=== PATIENT | female | born 1970 | race African-American/Black ===

== ENCOUNTER 2017-01-23 05:29 | Day surgery (SDC) | payer BC ==
[2017-01-21 11:17] LABS: APPEARANCE,URINE CLEAR; BILIRUBIN,URINE NEGATIVE (NEGATIVE); GLUCOSE, URINE NEGATIVE (NEGATIVE); KETONES,URINE NEGATIVE (NEGATIVE); LEUKOCYTE ESTERASE,URINE NEGATIVE (NEGATIVE); NITRITE,URINE NEGATIVE (NEGATIVE); PROTEIN,URINE NEGATIVE (NEGATIVE); URINE SPECIFIC GRAVITY 1.002; UROBILINOGEN,URINE NEGATIVE mg/dL (<2.0)
--- NOTE | 2017-01-21 12:14 | RADIOLOGY REPORT (SQ) ---
EXAM DESCRIPTION: CHEST PA/LATERAL COMPLETED DATE/TIME: 01/21/2017 12:05 pm REASON FOR STUDY: PRE OP COMPARISON: None. EXAM PARAMETERS: NUMBER OF VIEWS: two views TECHNIQUE: Digital Frontal and Lateral radiographic views of the chest acquired. RADIATION DOSE: NA LIMITATIONS: none FINDINGS: LUNGS AND PLEURA: No opacities, masses or pneumothorax. No pleural effusion. MEDIASTINUM AND HILAR STRUCTURES: No masses or contour abnormalities. HEART AND VASCULAR STRUCTURES: Heart normal size. No evidence for failure. BONES: No acute findings. HARDWARE: None in the chest. OTHER: No other significant finding. IMPRESSION: NO SIGNIFICANT RADIOGRAPHIC FINDING IN THE CHEST. TECHNICAL DOCUMENTATION: JOB ID: [id number] [employer]- All Rights Reserved
[2017-01-21 12:24] LABS: HEMATOCRIT 36.3 % (36.0-47.0); HGB HCT DIFFERENCE -0.3; MEAN CORPUSCULAR HEMOGLOBIN 29.5 pg (27.0-33.4); MEAN CORPUSCULAR HGB CONC 33.1 g/dL (32.0-36.0); MEAN CORPUSCULAR VOLUME 89 fl (80-97); RED BLOOD COUNT 4.07 10^6/uL (3.72-5.28); RED CELL DISTRIBUTION WIDTH 13.3 % (11.5-14.0); WHITE BLOOD COUNT 4.9 10^3/uL (4.0-10.5)
[2017-01-21 12:49] LABS: ANION GAP 10 (5-19); BLOOD UREA NITROGEN 9 mg/dL (7-20); CALCIUM 9.4 mg/dL (8.4-10.2); CARBON DIOXIDE 29 mmol/L (22-30); CHLORIDE 102 mmol/L (98-107); CREATININE RESULT 0.65 mg/dL (0.52-1.25); GLUCOSE 79 mg/dL (75-110); POTASSIUM 4.1 mmol/L (3.6-5.0); SODIUM 140.6 mmol/L (137-145)
--- NOTE | 2017-01-21 19:11 | EKG REPORT ---
SEVERITY:- NORMAL ECG - SINUS RHYTHM : Confirmed by: Wilner Huerta MD 21-Jan-2017 19:10:29
[~2017-01-23 05:29] MED LIST: CEFAZOLIN 1 GM/D5W RTU 1 GM/50 ML RTUPB IV PRN; LACTATED RINGERS 1000 ML IV PRN; LIDOCAINE 0.5% INJ-PF (5 MG/ML) 50 ML SDV SUBCUT PRN
[2017-01-23] MEDS ORDERED: DEXAMETHASONE SOD PHOSPHATE INJ 4 MG/1 ML VIAL ONE ×2 (06:45→14:07)
[2017-01-23] MEDS ORDERED: MIDAZOLAM 2 MG/2 ML INJ ONE (06:45)
[2017-01-23] MEDS ORDERED: FENTANYL CITRATE INJ/PF 250 MCG/5 ML AMPULE ONE (06:45)
[2017-01-23] MEDS ORDERED: ACETAMINOPHEN 100 ML IV ONE (06:46)
[2017-01-23] MEDS ORDERED: ONDANSETRON HCL INJ/PF 4 MG/2 ML SDV ONE (06:46)
[2017-01-23] MEDS ORDERED: IBUPROFEN INJ 800 MG/8 ML VIAL IV ONE (06:46)
[2017-01-23] MEDS ORDERED: PROPOFOL INJ 200 MG/20 ML VIAL IV ONE (06:46)
[2017-01-23] MEDS ORDERED: LIDOCAINE 0.5%/EPINEPHRINE INJ 50 ML VIAL ONE (07:26)
[2017-01-23] MEDS ORDERED: MEPERIDINE HCL/PF INJ 25 MG/1 ML DISP.SYRIN IV PRN (07:51)
[2017-01-23] MEDS ORDERED: DIPHENHYDRAMINE HCL 50 MG/ML VIAL IV PRN (07:51)
[2017-01-23] MEDS ORDERED: OXYCODONE-ACETAMINOPHEN 5-325 MG TABLET PO PRN ×3 (07:51→08:58)
[2017-01-23] MEDS ORDERED: FENTANYL CITRATE INJ/PF 100 MCG/2 ML AMPUL IV PRN ×3 (07:51)
[2017-01-23] MEDS ORDERED: MORPHINE SULFATE 10 MG/ML INJ IV PRN (07:51)
[2017-01-23] MEDS ORDERED: PROMETHAZINE HCL INJ 25 MG/1 ML VIAL IV PRN ×2 (07:51)
[2017-01-23] MEDS ORDERED: ONDANSETRON HCL INJ/PF 4 MG/2 ML SDV IV PRN (07:51)
[2017-01-23] MEDS ORDERED: MORPHINE SULFATE 10 MG/ML INJ IM PRN ×3 (08:59→09:00)
[2017-01-23] MEDS ORDERED: PROMETHAZINE HCL INJ 50 MG/1 ML VIAL IM PRN (09:01)
--- NOTE | 2017-01-23 09:57 | OPERATIVE REPORT E ---
Operative Report NAME: CRISS JACQUES : 1970 AGE: 46Y DATE OF SURGERY: 01/23/2017 ROOM: PREOPERATIVE DIAGNOSES: 1. Dysmenorrhea. 2. Menorrhagia. 3. Uterine leiomyoma. POSTOPERATIVE DIAGNOSES: 1. Dysmenorrhea. 2. Menorrhagia. 3. Uterine leiomyoma. OPERATION: 1. Total vaginal hysterectomy. 2. Sinclair culdoplasty. SURGEON: KWAKU GONZALES M.D. COMPLICATIONS: None. ANESTHESIA: General endotracheal. FINDINGS: A 4 cm intramural fibroid and spindle in nature. Normal tubes and ovaries appreciated. No enterocele formation was noted. INDICATION FOR PROCEDURE: The patient had heavy bleeding and pain, unresponsive to usual outpatient management. She desired attempt at definitive therapy with hysterectomy. The usual risks of bleeding, infection, anesthesia, and damage to other organs and tissues were discussed, and the patient and understood. PROCEDURE: Patient taken to the operating room and placed in modified lithotomy position. Adequate anesthesia was ascertained. Prepped in the usual manner for a vaginal hysterectomy. The bladder was drained with sterile technique, a UA performed. A posterior colotomy was performed after surgical timeout had been performed and antibiotics had been given. An EUA performed and bladder drained. The posterior cul-de-sac was entered without difficulty. The posterior cul-de-sac had been infiltrated with approximately 8 mL of 0.5% lidocaine with epinephrine prior to this aspect of the procedure. The uterosacral ligaments were cross-clamped, cut, clamped, suture-ligated and held. The cervix was circumscribed and bladder advanced sequentially through this aspect of the procedure. A LigaSure Advance device was used for cautery of the cardinal ligaments, uterine vessels and broad ligament. The bladder was reflected anterior through this aspect of the procedure and anterior cul-de-sac ultimately entered without difficulty and placement of the [place] retractor placed, reflecting the ureters and bladder anteriorly was performed throughout. The upper pedicles were identified and the uterus was brought in the operative field. Clamps were placed and LigaSure cautery was performed of the upper pedicles and suture-ligation and free tie of the upper pedicles were likewise performed. The ovaries were identified and were in normal limits. Bowels packed out of the pelvis and good hemostasis noted throughout. The colpopexy sutures were placed and held and the vagina was then closed in an anteroposterior fashion after removal of the pack and vagina was closed with good hemostasis noted. The *------* copious amounts of clear fluid. All instruments and sponges were accounted for. Patient was taken to the recovery room in a stable. DICTATING PHYSICIAN: KWAKU GONZALES M.D. [id number] PHY#: [id number] ID: [id number] JOB#: [id number] ACCT: [id number] cc:KWAKU GONZALES M.D. >
[2017-01-23] MEDS: PROMETHAZINE HCL INJ 25 MG/1 ML VIAL IM PRN ×2 (10:35→17:55)
[2017-01-23] MEDS: CEFAZOLIN 1 GM/D5W RTU 1 GM/50 ML RTUPB IV SCH ×2 (12:05→18:05)
[2017-01-23] MEDS ORDERED: LIDOCAINE 2% INJ-PF (20 MG/ML) 10 ML AMPUL ONE (14:07)
[2017-01-23] MEDS ORDERED: NEOSTIGMINE METHYLSULFATE 10 MG/10 ML VIAL ONE (14:07)
[2017-01-23] MEDS ORDERED: GLYCOPYRROLATE INJ 0.4 MG/2 ML VIAL ONE (14:07)
[2017-01-23] MEDS ORDERED: VECURONIUM BROMIDE INJ 10 MG VIAL IV ONE (14:07)
[2017-01-23] MEDS ORDERED: SUCCINYLCHOLINE CHLORIDE INJ 200 MG/10 ML VIAL ONE (14:07)
[2017-01-23] MEDS ORDERED: KETOROLAC TROMETHAMINE 60 MG/2 ML SDV ONE (14:07)
[2017-01-23] MEDS: IBUPROFEN 800 MG TABLET PO PRN (19:31)
[2017-01-24] MEDS: IBUPROFEN 800 MG TABLET PO PRN (06:16)
[2017-01-24 06:45] LABS: HEMATOCRIT 30.9 % (36.0-47.0); HEMOGLOBIN 10.2 g/dL (12.0-15.5); HGB HCT DIFFERENCE -0.3; MEAN CORPUSCULAR HEMOGLOBIN 29.2 pg (27.0-33.4); MEAN CORPUSCULAR VOLUME 89 fl (80-97); RED BLOOD COUNT 3.49 10^6/uL (3.72-5.28); RED CELL DISTRIBUTION WIDTH 13.3 % (11.5-14.0); WHITE BLOOD COUNT 9.4 10^3/uL (4.0-10.5)
[2017-01-24 08:42] VITALS: BP 108/61
== END 2017-01-24 09:58 | disposition home or self-care (01) ==
LOC: OROUT 05:29 → 2N 09:41 → OROUT 01-24 09:58
PROVIDERS: ATTEND Specialist
PROC: 0UTC7ZZ Resection of Cervix, Via Natural or Artificial Opening (ICD-10-PCS; 2017-01-23)
PROC: 0UT97ZZ Resection of Uterus, Via Natural or Artificial Opening (ICD-10-PCS; principal; 2017-01-23 07:15)
DX: D25.9 Leiomyoma of uterus, unspecified (principal); N92.0 Excessive and frequent menstruation with regular cycle; N72 Inflammatory disease of cervix uteri; Z79.899 Other long term (current) drug therapy; Z88.2 Allergy status to sulfonamides; Z88.1 Allergy status to other antibiotic agents
CPT/HCPCS: 93005; 86900; 86901; 36415 ×2; 86850; 85027 ×2; 81025; 80048; 81001; 88307 ×2; 71020; 94799; 93010; 58260; J2250; J0690; J1100; J1885; J3010; J3490 ×3; J2270; J2550; J0330; J2405; J2704; J0131; J1741; 944

== ENCOUNTER → 2019-06-24 | Outpatient (CLI) | payer BC ==
--- NOTE | 2019-06-24 09:48 | WOMENS IMAGING REPORT ---
EXAM DESCRIPTION: U/S ABDOMEN TOTAL COMPLETED DATE/TIME: 06/24/2019 8:15 am REASON FOR STUDY: R10.32;689.29 R10.32 LEFT LOWER QUADRANT PAIN G89.29 OTHER CHRONIC PAIN COMPARISON: None. TECHNIQUE: Dynamic and static grayscale images acquired of the abdomen and recorded on PACS. Additio nal selected color Doppler and spectral images recorded. Note: Study does not meet criteria for complete doppler/duplex scan LIMITATIONS: None. FINDINGS: PANCREAS: No masses. Visualized pancreatic duct normal caliber. LIVER: Normal in size measuring 14.3 cm. No masses. Echotexture normal. LIVER VASCULATURE: Normal directional flow of the main portal vein and hepatic veins. GALLBLADDER: Surgically absent. ULTRASOUND-DETECTED CORCORAN'S SIGN: Not applicable. INTRAHEPATIC DUCTS AND COMMON DUCT: CBD and intrahepatic ducts normal caliber. No filling defects. INFERIOR VENA CAVA: Normal flow. AORTA: No aneurysm. RIGHT KIDNEY: Normal in size measuring 12.3 cm. Normal echogenicity. No solid or suspicious mass es. No hydronephrosis. No calcifications. LEFT KIDNEY: Normal in size measuring 12.6 cm. Normal echogenicity. No solid or suspicious stephanie s. No hydronephrosis. No calcifications. SPLEEN: Normal in size measuring 8.5 cm. No focal lesions. PERITONEAL AND PLEURAL SPACES: No ascites or effusions. OTHER: No other significant finding. IMPRESSION: Prior cholecystectomy. Otherwise, unremarkable abdominal ultrasound. TECHNICAL DOCUMENTATION: JOB ID: [id number] [employer]- All Rights Reserved Reading location - IP/workstation name: [email or web address]
== END ==
LOC: WI 07:20
PROVIDERS: ATTEND Internal Medicine Gastroenterology
DX: R10.32 Left lower quadrant pain (principal); G89.29 Other chronic pain
CPT/HCPCS: 76700